=== PATIENT | female | born 1940 | race Caucasian/White ===

== ENCOUNTER 2020-03-17 14:10 | Outpatient (CLI) | payer MEDICARE, SELFPAY ==
--- NOTE | 2020-03-17 14:17 | XR_ITS ---
WS: [id number] HIP WITH PELVIS LEFT TECHNIQUE: 3 views of the left hip with pelvis CLINICAL INFORMATION: LEFT TOTAL HIP ARTHROPLASTY COMPARISON: None. FINDINGS: Left CHERYL. No evidence of hardware loosening. No acute fractures. Pelvic phleboliths. XR/XR hip LT 2-3V wo/w pel* [id number] IMPRESSION: Normal left CHERYL
== END 2020-03-17 14:11 | disposition home or self-care (01) ==
LOC: RAD 14:15
PROVIDERS: Family Provider Family Medicine; PCP Family Medicine; Visit Provider Orthopaedic Surgery
DX: Z96.642 Presence of left artificial hip joint (principal)
CPT/HCPCS: 73502

== ENCOUNTER 2022-09-28 09:28 | Outpatient (CLI) | payer MEDICARE, SELFPAY ==
--- NOTE | 2022-09-28 09:30 | USCV_ITS ---
Shona Cuenca Age: 82 Gender: F : 1940 Exam Date: 09/28/2022 09:45 Ordering Phys: Moose Colon MD Technologist: Angela Petty Exam Location: [facility] Indication: Heart murmur BP: 128 / 80 HR: 64 Rhythm: Sinus Technical Quality: Adequate MEASUREMENTS (Male / Female) Normal Values 2D ECHO LV Diastolic Diameter PLAX 3.2 cm 4.2 - 5.9 / 3.9 - 5.3 cm LV Systolic Diameter PLAX 1.5 cm IVS Diastolic Thickness 1.8 cm 0.6 - 1.0 / 0.6 - 0.9 cm IVS Systolic Thickness 1.9 cm LVPW Diastolic Thickness 1.5 cm 0.6 - 1.0 / 0.6 - 0.9 cm LVPW Systolic Thickness 1.6 cm LVOT Diameter 2.1 cm LV Ejection Fraction 2D Teich 84.4 % LV Ejection Fraction MOD 2C 83.8 % LV Ejection Fraction 2C AL 83.9 % LA Diameter 4.8 cm LA Width 3.5 cm LA Height 5.9 cm RA Width 4.1 cm RA Height 4.2 cm Aorta at Sinotubular Diameter 2.7 cm IVC Diameter 1.8 cm M-MODE MV E Point Septal Separation 0.8 cm DOPPLER AV Peak Velocity 209.0 cm/s LVOT Peak Velocity 108.0 cm/s AV Area Cont Eq vti 1.7 cm squared AV Area Cont Eq pk 1.7 cm squared MV Peak Velocity 136.0 cm/s MV Area PHT 2.9 cm squared Mitral E to A Ratio 0.6 MV E' Velocity 47.5 cm/s Mitral E to MV E' Ratio 15.9 Mitral E to LV E' Lateral Ratio 15.9 Mitral E to LV E' Septal Ratio 15.9 TR Peak Velocity 178.0 cm/s TR Peak Gradient 12.7 mmHg Right Atrial Pressure 3.0 mmHg Pulmonary Artery Systolic Pressu 15.7 mmHg PV Peak Velocity 97.0 cm/s RV Acceleration Time 0.1 s RV Ejection Time 0.3 s RV AcT/ET 0.4 FINDINGS Left Ventricle Normal left ventricular size, systolic function and wall thickness, with no regional wall motion abnormalities. Left ventricular ejection fraction is estimated at 70 %. Grade I diastolic dysfunction (abnormal relaxation filling pattern), normal to mildly elevated filling pressures. Right Ventricle Normal right ventricular size and systolic function. Right Atrium Normal right atrial size. Left Atrium Mildly increased left atrial size. Mitral Valve Moderate mitral annular calcification. Structurally normal mitral valve. No mitral valve stenosis. Trace mitral valve regurgitation. Aortic Valve Thickened sclerotic trileaflet aortic valve. No aortic valve stenosis. Mild aortic valve regurgitation. Tricuspid Valve Structurally normal tricuspid valve. No tricuspid valve stenosis. Trace to mild tricuspid valve regurgitation. Pulmonic Valve Pulmonic valve not well visualized. No pulmonary valve stenosis. Pericardium No pericardial effusion. Aorta Normal size aortic root and proximal ascending aorta. IVC Normal IVC dimension with >50% respiratory change of the inferior vena cava. CONCLUSIONS 1. Normal left ventricular size, systolic function and wall thickness, with no regional wall motion abnormalities. Left ventricular ejection fraction is estimated at 70 %. Grade I diastolic dysfunction (abnormal relaxation filling pattern), normal to mildly elevated filling pressures. 2. Mild aortic valve regurgitation. 3. No prior similar studies to compare. Joana Toure MD (Electronically Signed) Final Date: 29 September 2022 18:13 S
== END 2022-09-28 09:29 | disposition home or self-care (01) ==
LOC: RAD 09:29
PROVIDERS: PCP Family Medicine; Visit Provider Family Medicine
DX: R01.1 Cardiac murmur, unspecified (principal); I35.1 Nonrheumatic aortic (valve) insufficiency; I51.89 Other ill-defined heart diseases
CPT/HCPCS: 93306

== ENCOUNTER 2024-04-08 12:58 | Emergency (ER) | payer MEDICARE, SELFPAY ==
[2024-04-08 13:02] VITALS: BP 207/118; PULSE 86; RESP 18; TEMP 36.7; O2SAT 97
--- NOTE | 2024-04-08 13:16 | CT_ITS ---
WS: [id number] CT HEAD TECHNIQUE: Noncontrast CT of the head obtained from the skullbase to the vertex. CLINICAL INFORMATION: AMS COMPARISON: None. DLP: 2148.[address] scans at [facility] use at least one of these dose optimization techniques: automated e xposure control; mA and/or kV adjustment per patient size (includes targeted exams where dose is matc hed to clinical indication); or iterative reconstruction. FINDINGS: No evidence of intracranial hemorrhage or mass effect. Ventricular system and basal cisterns are parkinson nt. Mild small vessel changes with mild parenchymal volume loss. No extra-axial fluid collections. No evidence of mass or mass effect. Intracranial vascular calcification. Paranasal sinuses and mastoid air cells are well aerated. .Normal visualized soft tissues. Small rete ntion cyst or polyp RIGHT maxillary sinus partially visualized measuring 1.[address]/CT head wo con* [id number] IMPRESSION: 1. No evidence of intracranial hemorrhage or mass effect. 2. No acute intracranial findings.
--- NOTE | 2024-04-08 13:22 | ED_ITS ---
HPI - Dizziness 2 General: Chief Complaint: Dizziness Stated Complaint: dizzy Time Seen by Provider: 04/08/24 13:11 Source: patient Mode of arrival: ambulatory History of Present Illness: HPI Narrative: 83-year-old female presents to the emerg ency room stating just does not feel well. She felt better yesterday. She has increased tremor which has been a chronic issue for her and not yet really been evaluated for. She has hypertensive she had not been taking her blood pressure medicines last couple of days. Family reports she seems to have been a little confused the last few days patient acknowledges this but is able to give very detailed history she is aware she had not taken her medications. She had filled his losartan hydrochlorothiazide and forgot she had picked it up and was going back to town to pick it up she admits that his family had also noted this and was quite concerned. She denies any chest pain denies any abdominal pain. No flank pain no hematuria. No fever sweats or chills. No difficulty speech swallowing vision or gait. She does feel mildly dizzy at times MD elicited complaint: dizziness Onset (ago): day(s) (1) Severity: mild Description: sense of movement Context: change in medication (Has not had antihypertensive x 3 days) Associated symptoms: Reports weakness; Denies change in hearing, chest pain, chills, cough, diaphoresis, ear discharge, ear pressure, fevers/chills, headache(s), malaise, nausea, nasal congestion, palpitations, rash, short of breath, syncope, tinnitus or vomiting Associated neuro symptoms: Reports confusion (At times, A&O x 4 at the time she was seen); Deny difficulty speaking, dysphagia, diplopia, extremity weakness, facial numbness, facial weakness, gait changes, numbness in extremities or visual changes Review of Systems 2 Const: Denies: fever(s), chills, malaise or diaphoresis ENMT: Denies: ear discharge, change in hearing, tinnitus or nasal congestion Card: Denies: chest pain, palpitations or syncope Resp: Denies: dyspnea GI: Denies: abdominal pain, nausea, vomiting or dysphagia : Denies: dysuria, urinary frequency or urinary urgency Musc: Denies: neck pain or back pain Skin/Breast: Denies: rash Neuro: Reports: confusion (At times, A&O x 4 at the time she was seen); Denies: headache(s) or numbness in extremities Physical Exam 2 Const: COMMON NORMALS: no acute distress GENERAL APPEARANCE: cooperative and comfortable ORIENTATION/CONSCIOUSNESS: Yes awake, Yes oriented to person, Yes oriented to place and Yes oriented to time HENMT: COMMON NORMALS: normocephalic, atraumatic and hearing grossly normal bilaterally HEAD & SCALP: normocephalic and atraumatic Resp: COMMON NORMALS: normal respiratory effort, No retractions, No use of accessory muscles and clear to auscultation bilaterally AUSCULTATION: clear to auscultation bilaterally Cardio: COMMON NORMALS: regular rate, regular rhythm and No murmurs present (Cardio) RATE: regular rate RHYTHM: regular rhythm GI: COMMON NORMALS: Soft to palpation and No hepatosplenomegaly present A USCULTATION: Yes normoactive bowel sounds PALPATION: Yes Soft to palpation, No Tenderness to palpation present (GI), No Guarding due to palpation present (GI) and Yes No hepatosplenomegaly present Extremity: COMMON NORMALS: normal to inspection, capillary refill normal, no clubbing, cyanosis or edema, no calf tenderness and no pedal edema Neuro: SENSORIUM/ORIENTATION: Yes oriented to person, Yes oriented to place and Yes oriented to time Skin: COMMON NORMALS: no rashes or lesions noted GENERAL SKIN EXAM: no rashes or lesions noted Course 2 Vital Signs: Vital signs: Vital Signs Temperature 98.1 F 04/08/24 13:02 Pulse Rate 77 04/08/24 17:32 Respiratory Rate 18 04/08/24 13:02 Blood Pressure 137/78 04/08/24 17:32 Pulse Oximetry 98 04/08/24 17:32 Oxygen Delivery Me thod Room Air 04/08/24 13:02 MDM - Dizziness Medical Decision Making Patient's blood pressure improved with medications given discharged home add amlodipine 5 mg daily also noted patient had a mild bladder infection no leukocytosis. Will start on cefdinir 300 p.o. twice daily. Push fluids follow- up with primary care to reevaluate blood pressure if symptoms otherwise worsen return to the emergency room Medical Records I reviewed the patient's medical records. Lab Data I reviewed the patient's lab results. 04/08/24 13:42 04/08/24 13:[address] 04/08/24 13:16 IMPRESSION: 1. No evidence of intracranial hemorrhage or mass effect. 2. No acute intracranial findings. Laboratory Results WBC 5.53 10^3/uL (3.29-11.43) 04/08/24 13:42 RBC 4.34 10^6/uL (3.85-5.65) 04/08/24 13:42 Hgb 12.90 g/dL (11.27-16.99) 04/08/24 13:42 Hct 39.4 % (36-47) 04/08/24 13:42 MCV 90.8 fl (85-98) 04/08/24 13:42 MCH 29.7 pg (27-33) 04/08/24 13:42 MCHC 32.7 g/dL (30-55) 04/08/24 13:42 RDW 14.5 % (12.1-15.1) 04/08/24 13:42 Plt Count 213 10^3/cmm (157-399) 04/08/24 13:42 MPV 11.2 fL (7.4-10.4) H 04/08/24 13:42 Neut % (Auto) 72.8 % 04/08/24 13:42 Lymph % (Auto) 15.2 % 04/08/24 13:42 [place] % (Auto) 9.2 % 04/08/24 13:42 Eos % (Auto) 1.3 % 04/08/24 13:42 Baso % (Auto) 1.1 % 04/08/24 13:42 Neut # (Auto) 4.03 10^3/uL (1.8-7.7) 04/08/24 13:42 Lymph # (Auto) 0.8 10^3/uL (0.8-4.8) 04/08/24 13:42 Irwin # (Auto) 0.5 10^3/uL (0.2-0.9) 04/08/24 13:42 Eos # (Auto) 0.1 10^3/uL (0.0-0.8) 04/08/24 13:42 Baso # (Auto) 0.1 10^3/uL (0.0-0.1) 04/08/24 13:42 Nucleated RBC % (auto) 0 % 04/08/24 13:42 Nucleated RBCs # 0.0 /100WBC 04/08/24 13:42 Sodium 140 mmol/L (136-145) 04/08/24 13:42 Potassium 3.9 mmol/L (3.5-5.1) 04/08/24 13:42 Chloride 106 mmol/L (98-107) 04/08/24 13:42 Carbon Dioxide 24 mmol/L (22-29) 04/08/24 13:42 Anion Gap 13.9 (5-19) 04/08/24 13:42 BUN 24 mg/dL (8-23) H 04/08/24 13:42 Creatinine 0.9 mg/dL (0.5-0.9) 04/08/24 13:42 GFR Calculation Not Reportable 04/08/24 13:42 Glucose 96 mg/dL (65-115) 04/08/24 13:42 Calculated Osmolality 294 mOsm/kg (285-295) 04/08/24 13:42 Lactic Acid 0.8 mmol/L (0.5-2.2) 04/08/24 13:42 Calcium 9.4 mg/dL (8.5-10.5) 04/08/24 13:42 Total Bilirubin 0.3 mg/dL (0.15-1.2) 04/08/24 13:42 AST 19 U/L (0-32) 04/08/24 13:42 ALT 10 U/L (0-33) 04/08/24 13:42 Alkaline Phosphatase 64 U/L (35-105) 04/08/24 13:42 Total Protein 7.3 g/dL (6.6-8.7) 04/08/24 13:42 Albumin 3.9 g/dL (3.5-5.2) 04/08/24 13:42 Globulin 3.4 g/dL (1.3-4.6) 04/08/24 13:42 Urine Color Yellow (Yellow) 04/08/24 14:09 Urine Appearance Sl hazy (CLEAR) A 04/08/24 14:09 Urine pH 6 (5-7) 04/08/24 14:[address] [place] 1.005 (1.005-1.030) 04/08/24 14:09 Urine Protein Trace (Negative) 04/08/24 14:09 Urine Glucose (UA) Norm (Normal) 04/08/24 14:09 Urine Ketones Negative (Negative) 04/08/24 14:09 Urine Blood Neg (Negative) 04/08/24 14:09 Urine Nitrate Positive (Negative) H 04/08/24 14:09 Urine Bilirubin Neg (Negative) 04/08/24 14:09 Urine Urobilinogen Norm mg/dL (Negative) 04/08/24 14:09 Ur Leukocyte Esterase Trace (Negative) H 04/08/24 14:09 Urine RBC 0-4 /hpf (0-2) H 04/08/24 14:09 Urine WBC 10-15 /hpf (0-5) H 04/08/24 14:09 Ur Squamous Epith Cells None /hpf (0-5) 04/08/24 14:09 Amorphous Sediment Not Reportable 04/08/24 14:09 Urine Bacteria 3+ /hpf (NONE) H 04/08/24 14:09 All radiology interpretation(s) finalized by discharge Discharge Plan Discharge Patient Disposition: Home Clinical Impression: Cystitis, HTN (hypertension) Condition: Stable Prescriptions: New amlodipine 5 mg tablet 5 mg PO DAILY Qty: 30 0RF cefdinir 300 mg capsule 300 mg PO BID Qty: 14 0RF losartan-hydrochlorothiazide 50-12.5 mg tablet 1 tab PO DAILY Qty: 30 0RF No Action atorvastatin 10 mg tablet 10 mg PO BEDTIME oxybutynin chloride 10 mg tablet extended release 24hr 10 mg PO DAILY losartan-hydrochlorothiazide 50-12.5 mg tablet 1 tab PO DAILY Discharge Orders: Discharge ED (Routine); Ordered 04/08/24 Ordered By: Erik Hawkins Referrals: Moose Colon MD [Primary Care Provider] - Discharge Diet: Usual diet Discharge Activity: Resume usual activity Patient Instructions: Opioid Safety, Pain Management Activity Restrictions/Additional Instructions: Thank you for choosing [facility] for your healthcare needs today. Please realize this is an emergency room and that we are providing you with a medical screening exam and this may not be complete and all inclusive of all the testing and or work up that you may need to determine your ailment or severity of your illness. It is very important that you follow up as instructed or that you return to the Emergency Department should you have concerns or if your condition changes or worsens in any way. You were seen today for complaints of elevated blood pressure and generally not feeling well. Your blood pressure is significantly elevated recommend that you continue your losartan hydrochlorothiazide and add amlodipine 5 mg daily. In addition to this you are found to have a bladder infection recommend starting cefdinir 300 mg 1 twice daily for 7 days. Follow-up with your primary care doctor. Coding Level of Care Code ED Intermediate Teacher for Liban Arango
[2024-04-08 13:41] VITALS: PULSE 71; O2SAT 96
[2024-04-08 13:57] LABS: Basophils # 0.1 10^3/uL (0.0-0.1); Basophils % 1.1 %; Eosinophils # 0.1 10^3/uL (0.0-0.8); Eosinophils % 1.3 %; Hematocrit 39.4 % (36-47); Lymphocytes # 0.8 10^3/uL (0.8-4.8); Lymphocytes % 15.2 %; Mean Corpuscular HGB Conc 32.7 g/dL (30-55); Mean Corpuscular Hemoglobin 29.7 pg (27-33); Mean Corpuscular Volume 90.8 fl (85-98); Mean Platelet Volume 11.2 fL (7.4-10.4); Monocytes # 0.5 10^3/uL (0.2-0.9); Monocytes % 9.2 %; Neutrophils # 4.03 10^3/uL (1.8-7.7); Neutrophils % 72.8 %; Nucleated Red Blood Cells % 0 %; Platelet Count 213 10^3/cmm (157-399); Red Blood Count 4.34 10^6/uL (3.85-5.65); Red Cell Distribution Width 14.5 % (12.1-15.1); White Blood Count 5.53 10^3/uL (3.29-11.43)
[2024-04-08] MEDS: hydroCHLOROthiazide 25 mg Tablet PO (14:03)
[2024-04-08 14:07] LABS: Lactic Sepsis W/Reflex 0.8 mmol/L (0.5-2.2)
[2024-04-08 14:08] LABS: Alanine Aminotransferase 10 U/L (0-33); Albumin Level 3.9 g/dL (3.5-5.2); Alkaline Phosphatase 64 U/L (35-105); Anion Gap 13.9 (5-19); Aspartate Amino Transferase 19 U/L (0-32); Blood Urea Nitrogen 24 mg/dL (8-23); Calcium 9.4 mg/dL (8.5-10.5); Carbon Dioxide 24 mmol/L (22-29); Chloride 106 mmol/L (98-107); Globulin 3.4 g/dL (1.3-4.6); Glucose 96 mg/dL (65-115); Osmolality Calculated 294 mOsm/kg (285-295); Potassium 3.9 mmol/L (3.5-5.1); Sodium 140 mmol/L (136-145); Total Bilirubin 0.3 mg/dL (0.15-1.2); Total Protein 7.3 g/dL (6.6-8.7)
[2024-04-08 14:47] LABS: Add Urine Microscopic? YES; Bilirubin Urine Neg (Negative); Blood Urine Neg (Negative); Glucose Urine UA Norm (Normal); Ketones Urine Negative (Negative); Leukocyte Esterase Urine Trace (Negative); Nitrate Urine Positive (Negative); Protein Urine Trace (Negative); Specific Gravity, Urine 1.005 (1.005-1.030); Urine Appearance SL Hazy (CLEAR); Urine Color Yellow (Yellow); Urobilinogen Urine Norm (Negative); pH Urine 6 (5-7)
[2024-04-08 14:48] LABS: Add Urine Culture? Yes; Bacteria Urine 3+ /hpf; RBC Urine 0-4 /hpf (0-2)
[2024-04-08] MEDS: hyDRALAzine 20 mg/mL INJ 1 mL 10 MG IVP ×2 (15:29→16:26)
[2024-04-08 15:33] VITALS: BP 204/105
[2024-04-08] MEDS: losartan 50 mg Tablet PO (15:33)
[2024-04-08] MEDS: cefTRIAXone 1,000 MG in sodium chloride 0.9% (plus) 50 ML 100 MG IV (15:35)
[2024-04-08 15:41] VITALS: BP 204/105; BP 210/118; BP 216/129; BP 238/139; PULSE 71; PULSE 79; PULSE 86; PULSE 88; O2SAT 99
[2024-04-08] MEDS: labetalol 5 mg/mL SDV 20mL 10 MG IVP (16:28)
[2024-04-08 16:37] VITALS: BP 137/78; PULSE 77; O2SAT 98
[2024-04-08 17:32] VITALS: BP 137/78; PULSE 77; O2SAT 98
== END 2024-04-08 17:35 | disposition home or self-care (01) ==
PROVIDERS: Emergency Provider Family Medicine; PCP Family Medicine
DX: N30.90 Cystitis, unspecified without hematuria (principal); I10 Essential (primary) hypertension
CPT/HCPCS: 36415; 70450; 80053; 81001; 83605; 85025; 87077; 87086; 87186; 96365; 96375; 96376; 99285; J0360; J0696; J3490

== ENCOUNTER 2024-06-01 12:15 | Outpatient (CLI) | payer MEDICARE, SELFPAY ==
--- NOTE | 2024-06-01 12:23 | MR_ITS ---
WS: [id number] MRI LUMBAR SPINE NONCONTRAST TECHNIQUE: Sagittal T1, T2 and STIR imaging. Axial T1 and T2 imaging. CLINICAL INFORMATION: DEGENERATIVE LUMBAR SPINAL STENOSIS COMPARISON: MRI 2017 FINDINGS: Mild lumbar curve. No acute compression. Moderate spondylitic changes. L1-L2: Mild disc bulge with mild central canal stenosis. Narrowing of the subarticular recess bilater ally. Moderate facet arthropathy. Mild bilateral foraminal narrowing. L2-L3: Central canal stenosis has improved with laminectomy defects. Narrowing of the subarticular re cess. Foramen are patent. L3-L4: Improved central canal stenosis with laminectomy defects. Mild residual central canal narrowin g. Moderate facet arthropathy. Mild bilateral foraminal narrowing. L4-L5: Spinal canal is patent. Laminectomy defects. Moderate facet arthropathy. Mild bilateral forami nal narrowing. L5-S1: Shallow central protrusion with impingement of traversing S1 nerve roots bilaterally and mild central canal stenosis. This is similar to previous. Moderate to severe LEFT greater than RIGHT nancy inal narrowing. Visualized pelvic bony structures: Normal. Paravertebral soft tissues: Normal. MR/MR lumbar spine wo con* [id number] IMPRESSION: 1. Mild lumbar curve. Moderate spondylitic changes. No acute compression fract ures. 2. Improved central canal stenosis L2-3, L3-4, and L4-5 with laminectomy defec ts. Mild residual central canal stenosis at these levels with narrowing of the subarticular recess. 3. Mild similar-appearing central canal stenosis L1-2 and L5-S1. 4. Moderate to severe bilateral L5-S1 foraminal narrowing worse on the LEFT wi th impingement on the exiting LEFT L5 nerve root. 5. Shallow central protrusion L5-S1 impinges the traversing S1 nerve roots conor aterally.
== END 2024-06-01 12:18 | disposition home or self-care (01) ==
PROVIDERS: PCP Family Medicine; Visit Provider Family Medicine
DX: M48.061 Spinal stenosis, lumbar region without neurogenic claudication (principal); M47.896 Other spondylosis, lumbar region; M96.1 Postlaminectomy syndrome, not elsewhere classified; M99.63 Osseous and subluxation stenosis of intervertebral foramina of lumbar region; M99.64 Osseous and subluxation stenosis of intervertebral foramina of sacral region
CPT/HCPCS: 72148

== ENCOUNTER 2024-12-30 10:14 | Emergency (ER) | payer MEDICARE, SELFPAY ==
--- NOTE | 2024-12-30 10:15 | XR_ITS ---
WS: [id number] Portable AP upright chest, 12/30/2024 Clinical Data: weakness Comparison: None. Findings: No nodules, masses or effusions are seen. The heart is normal. The pulmonary vascularity is not increased. No pneumonia or pneumothorax is seen. The aortic arch shows calcification and there is tortuosity of the descending thoracic aorta. There is osteoarthritis of both shoulders. XR/XR chest 1V portable [id number] Impression: Atherosclerosis.
--- NOTE | 2024-12-30 10:17 | ECG_ITS ---
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 [email or web address]
[2024-12-30 10:23] VITALS: BP 120/77; PULSE 76; TEMP 36.4; O2SAT 100; BMI 29.1
[2024-12-30 11:21] LABS: Basophils # 0.1 10^3/uL (0.0-0.1); Basophils % 1.8 %; Eosinophils # 0.3 10^3/uL (0.0-0.8); Eosinophils % 5.1 %; Hematocrit 39.7 % (36-47); Lymphocytes # 0.9 10^3/uL (0.8-4.8); Lymphocytes % 17.7 %; Mean Corpuscular HGB Conc 33.2 g/dL (30-55); Mean Corpuscular Hemoglobin 29.9 pg (27-33); Mean Corpuscular Volume 89.8 fl (85-98); Mean Platelet Volume 10.9 fL (7.4-10.4); Monocytes # 0.5 10^3/uL (0.2-0.9); Monocytes % 10.4 %; Neutrophils # 3.18 10^3/uL (1.8-7.7); Neutrophils % 64.8 %; Nucleated Red Blood Cells % 0 %; Platelet Count 226 10^3/cmm (157-399); Red Blood Count 4.42 10^6/uL (3.85-5.65); Red Cell Distribution Width 15.3 % (12.1-15.1); White Blood Count 4.91 10^3/uL (3.29-11.43)
[2024-12-30 11:37] LABS: Alanine Aminotransferase 9 U/L (0-33); Albumin Level 4.1 g/dL (3.5-5.2); Alkaline Phosphatase 62 U/L (35-105); Anion Gap 16.1 (5-19); Aspartate Amino Transferase 20 U/L (0-32); Blood Urea Nitrogen 28 mg/dL (8-23); Calcium 9.4 mg/dL (8.5-10.5); Carbon Dioxide 24 mmol/L (22-29); Chloride 101 mmol/L (98-107); Creatinine Clr Calc Pharmacy 38.9298; Globulin 3.2 g/dL (1.3-4.6); Glucose 94 mg/dL (65-115); Lipase 64 U/L (13-60); Osmolality Calculated 289 mOsm/kg (285-295); Potassium 4.1 mmol/L (3.5-5.1); Sodium 137 mmol/L (136-145); Total Bilirubin 0.2 mg/dL (0.15-1.2); Total Protein 7.3 g/dL (6.6-8.7)
--- NOTE | 2024-12-30 11:45 | PC.NURSE ---
Patient stated woke up this morning not feeling good and not sure what is going. States this morning was walking sideways and felt weak and shaky. Family states she was SOB yesterday and this morning. Saw primary for weakness and SOB. Had UTI diagnosis on Saturday and on cipro now. Family states she is confused and has gotten worse with the confusion everyday. Family says the patient stated this morning that the top of her head had a funny sensation. No cough per patient.
--- NOTE | 2024-12-30 12:01 | ED_ITS ---
HPI - Weakness 2 General: Chief complaint: Weakness Stated complaint: weakness Time Seen by Provider: 12/30/24 11:49 History of Present Illness: 84-year-old woman with history of hypert ension who presents to the emergency room with generalized weakness. This been going on for about a week. She had been treated for urinary tract infection. She has been having tremors and increased confusion. She is alert and oriented now. No increased work of breathing. She has no other complaints. No fevers. No cough. No abdominal pain. No dysuria. No vomiting. Review of Systems 2 Narrative: Constitutional symptoms: Negative except as documented in HPI. Skin symptoms: Negative except as documented in HPI. Eye symptoms: Negative except as documented in HPI. ENMT symptoms: Negative except as documented in HPI. Respiratory symptoms: Negative except as documented in HPI. Cardiovascular symptoms: Negative except as documented in HPI. Gastrointestinal symptoms: Negative except as documented in HPI. Genitourinary symptoms: Negative except as documented in HPI. Musculoskeletal symptoms: Negative except as documented in HPI. Neurologic symptoms: Negative except as documented in HPI. Psychiatric symptoms: Negative except as documented in HPI. Endocrine symptoms: Negative except as documented in HPI. Physical Exam 2 Narrative: EXAM NARRATIVE: General: Alert, no acute distress. Skin: Warm, dry. Head: Normocephalic, atraumatic. Neck: Supple, trachea midline. Eye: Extraocular movements are intact. Ears, nose, mouth and throat: Tacky oral mucosa Cardiovascular: Regular, Normal peripheral perfusion. Respiratory: Lungs are clear to auscultation, respirations are non-labored, breath sounds are equal, Symmetrical chest wall expansion. Gastrointestinal: Soft, Nontender, Non distended Musculoskeletal: Normal ROM, no deformity. Neurological: Alert and oriented, No focal neurological deficit observed. Psychiatric: Cooperative, appropriate mood & affect. Course 2 Vital Signs: Vital signs: Vital Signs Temperature 97.5 F L 12/30/24 10:23 Pulse Rate 67 12/30/24 12:36 Respiratory Rate 19 H 12/30/24 12:36 Blood Pressure 133/75 12/30/24 12:36 Pulse Oximetry 99 12/30/24 12:36 Oxygen Delivery Me thod Room Air 12/30/24 10:23 MDM - Weakness Medical Decision Making Medical decision making: Differential diagnosis for patient presenting with generalized weakness including but not limited to and based on the above HPI, review of systems and physical exam: Sepsis. Dehydration. Renal failure. Electrolyte abnormalities. Anemia. Congestive heart failure. Hypotension. Coronary syndrome. Hepatitis. Cirrhosis. Infections such as pneumonia, urinary tract infection, [place] illness, Cellulitis, Viral infections including influenza and Covid-19. Workup: labwork and lab/exam driven imaging ordered to evaluate, rule in and rule out above pathologies. EKG: Time 1027. Rate 66. Normal sinus rhythm, nonspecific ST-T changes, no ectopy, normal SC & QRS intervals, This was reviewed and interpreted by myself the ER physician at 1031 Lab Review: Laboratory results were reviewed and interpreted by myself the emergency room physician. No leukocytosis. No anemia. Mild elevation in her BUN and creatinine over baseline. Urinalysis is negative for infection. Breast some acute mild dehydration could result in her weakness and shakiness. Fluids are being given. CT head: No acute intracranial process. no intracranial hemorrhage, no evidence of infarct. no evidence of acute fracture.This was reviewed and interpreted by myself the ER physician. Chest x-ray: No acute process. No infiltrate. No pneumothorax. This was reviewed and interpreted by myself the emergency room physician. I also reviewed the radiology report. I reviewed the patient's medical record. Reexamination: Patient remained stable. No increased work of breathing. No altered mental status. No focal motor deficits. Assessment and plan: Dehydration Weakness - Discharged home - Discussed plan with patient and family. Answered any questions. - Evaluation and treatment of this problem were appropriate in the emergency setting. Lab Data 12/30/24 11:07 12/30/24 11:07 Radiology Impressions Chest X-Ray 12/30/24 10:15 Impression: Atherosclerosis. Head CT 12/30/24 13:10 IMPRESSION: 1. No acute intracranial hemorrhage or edema. 2. Mild atrophy and mild small vessel disease. 3. Moderate plaque in the intracranial carotid arteries. Laboratory Results WBC 4.91 10^3/uL (3.29-11.43) 12/30/24 11:07 RBC 4.42 10^6/uL (3.85-5.65) 12/30/24 11:07 Hgb 13.20 g/dL (11.27-16.99) 12/30/24 11:07 Hct 39.7 % (36-47) 12/30/24 11:07 MCV 89.8 fl (85-98) 12/30/24 11:07 MCH 29.9 pg (27-33) 12/30/24 11:07 MCHC 33.2 g/dL (30-55) 12/30/24 11:07 RDW 15.3 % (12.1-15.1) H 12/30/24 11:07 Plt Count 226 10^3/cmm (157-399) 12/30/24 11:07 MPV 10.9 fL (7.4-10.4) H 12/30/24 11:07 Neut % (Auto) 64.8 % 12/30/24 11:07 Lymph % (Auto) 17.7 % 12/30/24 11:07 Darke % (Auto) 10.4 % 12/30/24 11:07 Eos % (Auto) 5.1 % 12/30/24 11:07 Baso % (Auto) 1.8 % 12/30/24 11:07 Neut # (Auto) 3.18 10^3/uL (1.8-7.7) 12/30/24 11:07 Lymph # (Auto) 0.9 10^3/uL (0.8-4.8) 12/30/24 11:07 Darke # (Auto) 0.5 10^3/uL (0.2-0.9) 12/30/24 11:07 Eos # (Auto) 0.3 10^3/uL (0.0-0.8) 12/30/24 11:07 Baso # (Auto) 0.1 10^3/uL (0.0-0.1) 12/30/24 11:07 Nucleated RBC % (auto) 0 % 12/30/24 11:07 Nucleated RBCs # 0.0 /100WBC 12/30/24 11:07 Sodium 137 mmol/L (136-145) 12/30/24 11:07 Potassium 4.1 mmol/L (3.5-5.1) 12/30/24 11:07 Chloride 101 mmol/L (98-107) 12/30/24 11:07 Carbon Dioxide 24 mmol/L (22-29) 12/30/24 11:07 Anion Gap 16.1 (5-19) 12/30/24 11:07 BUN 28 mg/dL (8-23) H 12/30/24 11:07 Creatinine 1.1 mg/dL (0.5-0.9) H 12/30/24 11:07 GFR Calculation Not Reportable 12/30/24 11:07 Glucose 94 mg/dL (65-115) 12/30/24 11:07 Calculated Osmolality 289 mOsm/kg (285-295) 12/30/24 11:07 Lactic Acid 1.2 mmol/L (0.5-2.2) 12/30/24 11:07 Calcium 9.4 mg/dL (8.5-10.5) 12/30/24 11:07 Total Bilirubin 0.2 mg/dL (0.15-1.2) 12/30/24 11:07 AST 20 U/L (0-32) 12/30/24 11:07 ALT 9 U/L (0-33) 12/30/24 11:07 Alkaline Phosphatase 62 U/L (35-105) 12/30/24 11:07 Total Protein 7.3 g/dL (6.6-8.7) 12/30/24 11:07 Albumin 4.1 g/dL (3.5-5.2) 12/30/24 11:07 Globulin 3.2 g/dL (1.3-4.6) 12/30/24 11:07 Lipase 64 U/L (13-60) H 12/30/24 11:07 Urine Color Yellow (Yellow) 12/30/24 12:20 Urine Appearance Clear (CLEAR) 12/30/24 12:20 Urine pH 6.0 (5-7) 12/30/24 12:20 Ur Specific [place] 1.015 (1.005-1.030) 12/30/24 12:20 Urine Protein Negative (Negative) 12/30/24 12:20 Urine Glucose (UA) Negative (Normal) 12/30/24 12:20 Urine Ketones Negative (Negative) 12/30/24 12:20 Urine Blood Negative (Negative) 12/30/24 12:20 Urine Nitrate Negative (Negative) 12/30/24 12:20 Urine Bilirubin Negative (Negative) 12/30/24 12:20 Urine Urobilinogen 0.2 mg/dL (Negative) 12/30/24 12:20 Ur Leukocyte Esterase Negative (Negative) 12/30/24 12:20 Urine RBC 0-2 /hpf (0-2) 12/30/24 12:20 Urine WBC 0-5 /hpf (0-5) 12/30/24 12:20 Ur Squamous Epith Cells 0-5 /hpf (0-5) 12/30/24 12:20 Amorphous Sediment Not Reportable 12/30/24 12:20 Urine Bacteria None seen /hpf (NONE) 12/30/24 12:20 Hyaline Casts 0-4 /lpf H 12/30/24 12:20 Coronavirus (PCR) Negative (Negative) 12/30/24 11:55 Influenza A (PCR) Negative (Negative) 12/30/24 11:55 Influenza Type B (PCR) Negative (Negative) 12/30/24 11:55 RSV (PCR) Negative (Negative) 12/30/24 11:55 All radiology interpretation(s) finalized by discharge Discharge Plan Discharge Patient Disposition: Home Clinical Impression: Dehydration, Generalized weakness Condition: Stable Prescriptions: No Action atorvastatin 10 mg tablet 10 mg PO BEDTIME oxybutynin chloride 10 mg tablet extended release 24hr 10 mg PO DAILY losartan-hydrochlorothiazide 50-12.5 mg tablet 1 tab PO DAILY ciprofloxacin HCl 250 mg tablet 250 mg PO Q12H Discharge Orders: Discharge ED (Routine); Ordered 12/30/24 Ordered By: Bette Villar Referrals: Moose Colon MD [Primary Care Provider] - Discharge Diet: Usual diet Discharge Activity: Increase activity as tolerated Patient Instructions: Opioid Safety, Pain Management Activity Restrictions/Additional Instructions: Thank you for choosing [facility] for your healthcare needs today. Please realize this is an emergency room and that we are providing you with a medical screening exam and this may not be complete and all inclusive of all the testing and or work up that you may need to determine your ailment or severity of your illness. You have been screened and evaluated and felt safe for discharge. Health conditions do change or evolve sometimes and as such it is important that you follow up with your Primary Doctor to be re checked, 3-5 days is a general good time frame for follow up. You are always welcome to return to the ED for re assessment if your symptoms are worsening or you have new concerns Print Language: Andorran Coding Level of Care Code ED Director Of Institutional Sales for Chg Fwd Related Data Home Medications ?Medication ?Instructions ?Recorded ?Confirmed atorvastatin 10 mg tablet 10 mg PO BEDTIME 05/15/24 02 /05/25 losartan 50 mg-hydrochlorothiazide 1 tab PO DAILY 03/2512/30/24 12.5 mg tablet oxybutynin chloride 10 mg 10 mg PO DAILY 04/08/2404/18 tablet,extended release 24 hr ciprofloxacin HCl 250 mg tablet 250 mg PO Q12H 5 12/30/24 Allergies Allergy/AdvReac Type Severity Reaction Status Date / Time No Known Allergies Allergy Verified 12/30/24 10:35
[2024-12-30] MEDS: sodium chloride 0.9% 1,000 ML 999 ML IV (12:35)
[2024-12-30 12:36] VITALS: BP 133/75; PULSE 67; RESP 19; O2SAT 99
[2024-12-30 12:51] LABS: Bilirubin Urine Negative (Negative); Blood Urine Negative (Negative); Glucose Urine UA Negative (Normal); Ketones Urine Negative (Negative); Leukocyte Esterase Urine Negative (Negative); Nitrate Urine Negative (Negative); Protein Urine Negative (Negative); Specific Gravity, Urine 1.015 (1.005-1.030); Urine Appearance Clear (CLEAR); Urine Color Yellow (Yellow); Urobilinogen Urine 0.2 mg/dL (Negative)
[2024-12-30 12:56] LABS: Add Urine Microscopic? YES; Bacteria Urine None Seen /hpf; Hyaline Casts Urine 0-4 /lpf; RBC Urine 0-2 /hpf (0-2); Squamous Epithelial Cell Urine 0-5 /hpf (0-5); WBC Urine 0-5 /hpf (0-5)
--- NOTE | 2024-12-30 13:10 | CT_ITS ---
WS: [id number] CT HEAD NONCONTRAST HISTORY: Weakness TECHNIQUE: Contiguous axial imaging performed through the brain. Bone and soft tissue windows. Sagittal and coronal reformats reviewed. All CT scans at [facility] use at least one of these dose optimization techniques: automated exposure control; mA and/or kV adjustment per patient size (includes targeted exams where dose is matched to clinical indication); or iterative reconstruction. DLP: 1102.74 mGy.cm COMPARISON: 04/08/2024 No acute intracranial hemorrhage, midline shift or mass effect. Mild symmetric atrophy with diffuse mild small vessel disease. No prior infarct. Ventricles: Normal size with no hydrocephalus. Paranasal sinuses: As visualized are clear. Mastoid air cells: Well pneumatized. Calvarium and scalp: Skull is intact with no soft tissue edema or swelling. Scattered plaque in the distal vertebral arteries. Moderate plaque through the intracranial carotid arteries. CT/CT head wo con* [id number] IMPRESSION: 1. No acute intracranial hemorrhage or edema. 2. Mild atrophy and mild small vessel disease. 3. Moderate plaque in the intracranial carotid arteries.
[2024-12-30 13:13] LABS: Lactic Sepsis W/Reflex 1.2 mmol/L (0.5-2.2)
[2024-12-30 13:29] LABS: Covid PCR NEGATIVE (Negative); Influenza A NEGATIVE (Negative); Influenza B NEGATIVE (Negative); Respiratory Syncytial Virus Ce NEGATIVE (Negative)
[2024-12-30 14:23] VITALS: BP 141/73; PULSE 66; O2SAT 98
[2024-12-30 16:17] LABS: Adenovirus Not Detected (NOT DETECT); Chlamydia Pneumoniae Not Detected (NOT DETECT); Coronavirus 229E,HKU1,NL63,OC4 Not Detected (NOT DETECT); Human Metapneumovirus Not Detected (NOT DETECT); Human Rhinovirus/Enterovirus Not Detected (NOT DETECT); Influenza A Not Detected (NOT DETECT); Influenza A H1 Not Detected (NOT DETECT); Influenza A H1-2009 Not Detected (NOT DETECT); Influenza A H3 Not Detected (NOT DETECT); Influenza B Not Detected (NOT DETECT); Mycoplasma Pneumoniae Not Detected (NOT DETECT); Parainfluenza Virus Type 1 Not Detected (NOT DETECT); Parainfluenza Virus Type 2 Not Detected (NOT DETECT); Parainfluenza Virus Type 3 Not Detected (NOT DETECT); Parainfluenza Virus Type 4 Not Detected (NOT DETECT); Respiratory Syncytial Virus A Not Detected (NOT DETECT); Respiratory Syncytial Virus B Not Detected (NOT DETECT); SARS-COV-2 Not Detected (NOT DETECT)
== END 2024-12-30 14:24 | disposition home or self-care (01) ==
PROVIDERS: Emergency Medicine; Emergency Provider Emergency Medicine; PCP Family Medicine
DX: E86.0 Dehydration (principal); R53.1 Weakness; Z11.52 Encounter for screening for COVID-19
CPT/HCPCS: 36415; 70450; 71045; 80053; 81001; 83605; 83690; 85025; 87040; 87635; 87637; 93005; 96360; 96361; 99285; J7030

== ENCOUNTER 2025-01-08 08:47 | Emergency (ER) | payer MEDICARE, SELFPAY ==
[2025-01-08] VITALS (10 sets, daily range): BP systolic 142–185; BP diastolic 83–120; PULSE 73–88; RESP 17; TEMP 36.4; O2SAT 94–100; BMI 26.6
--- NOTE | 2025-01-08 08:56 | XR_ITS ---
WS: [id number] XR shoulder RT min 2V* [id number] REASON FOR EXAM: pain FINDINGS: No acute fracture or focal bone lesion. The acromioclavicular joint space is intact there is moderate marginal osteophytosis. Severe narrowing, with inferior [id number] articulation of the glenohumeral joint space severe subchondral sclerosis and cystic change in the subarticular humeral head and acetabulum. Significant deformity of the humeral head with large osteophytosis. Large loose body in the subcoracoid bursa. On the Y view there is a subtle discontinuity of cortex which could be indicative of an occult nondisplaced surgical neck fracture. Difficult to determine with the severe arthropathy.? Trauma XR/XR shoulder RT min 2V* [id number] IMPRESSION: Severe osteoarthritis of the right shoulder as above. Potential nondisplaced in complete surgical neck fracture, equivocal.
--- NOTE | 2025-01-08 09:07 | ECG_ITS ---
[facility] 2025[facility]08 Pat Name: Shona Cuenca Department: Room: Gender: Female Data Entry: : 1940 Requested By: Erik Neil Order Number: [id number] Reading MD: KING PENA Measurements Intervals [place] Rate: 74 P: 6 ND: 204 QRS: 55 QRSD: 96 T: 106 QT: 411 QTc: 456 Interpretive Statements SINUS RHYTHM WITH OCCASIONAL SUPRAVENTRICULAR PREMATURE COMPLEXES LEFT VENTRICULAR HYPERTROPHY AND ST-T CHANGE [VOLTAGE CRITERIA PLUS ST/T ABNORMALITY] POSSIBLE INFERIOR MYOCARDIAL INFARCTION , PROBABLY OLD [30 ms Q WAVE IN II/aVF] Compared to ECG 12/30/2024 10:27:53 Left ventricular hypertrophy now present ST (T wave) deviation now present Myocardial infarct finding still present Electronically Signed On 01-09-2025 19:28:11 RIG BUILDER by KING PENA [email or web address]
--- NOTE | 2025-01-08 09:09 | PC.PHAR ---
patients daughter states she stopped taking atorvastatin recently per doc orders, then oxybutynin was dc'd because of causing memory issues
--- NOTE | 2025-01-08 09:34 | ED_ITS ---
HPI - Fall 2 General: Chief Complaint: Fall Stated Complaint: R shoulder pain Time Seen by Provider: 01/08/25 08:55 History of Present Illness: 84 yo patient reports experiencing right shoulder pain, which has been persistent since a fall that occurred four to five years ago. Although the daughter interjects that the patient may have fallen this morning they found a stepstool there are some coverage with a put her medicines elevated to limit her ability to get at them she admitted she was trying to get her medicines. There is no obvious signs that the patient had a fall this morning. The patient has not had any recent falls that resulted in injury to the shoulder. The patient describes feeling unsteady and experiencing some confusion, which was notably severe about a week ago, leading to an ER visit where multiple tests were conducted but no significant issues were found. The patient has a history of high blood pressure, which was addressed with an increase in amlodipine dosage two weeks ago. The patient's blood pressure was noted to be low in the ER but has since stabilized. The patient denies recent chest pain, abdominal pain, or urinary symptoms. There is no recent history of fever, cough, or flu-like symptoms. The patient also reports occasional memory issues, which have been recent. The patient's daughter, Virginia, confirms these details and mentions that the patient looked shaky this morning Associated symptoms-after fall: Denies abdominal pain, chest pain or neck pain Related Data Home Medications ?Medication ?Instructions ?Recorded ?Confirmed losartan 50 mg-hydrochlorothiazide 1 tab PO DAILY 03/2501/08/25 12.5 mg tablet amlodipine 10 mg tablet 10 mg PO DAILY 01/08/2512/26 cranberry-vit 1 cap PO DAILY 01/08/2512/26 C-B.coag-FOS-L.acid-L.rham 250 mg-30 mg-39.5 mg capsule Allergies Allergy/AdvReac Type Severity Reaction Status Date / Time No Known Allergies Allergy Verified 12/30/24 10:35 Review of Systems 2 Const: Denies: fever(s) or chills Card: Denies: chest pain Resp: Denies: dyspnea GI: Denies: abdominal pain : Denies: dysuria, urinary frequency or urinary urgency Musc: Denies: neck pain or back pain Skin/Breast: Denies: rash PFSH ED 2 PFSH: Medical History Aortic stenosis Surgical History H/O: hysterectomy Previous back surgery S/P total knee arthroplasty Physical Exam 2 Const: GENERAL APPEARANCE: cooperative ORIENTATION/CONSCIOUSNESS: Yes awake, Yes oriented to person, Yes oriented to place and Yes oriented to time HENMT: COMMON NORMALS: normocephalic, atraumatic and hearing grossly normal bilaterally HEAD & SCALP: normocephalic and atraumatic Resp: COMMON NORMALS: normal respiratory effort, No retractions, No use of accessory muscles and clear to auscultation bilaterally AUSCULTATION: clear to auscultation bilaterally Cardio: COMMON NORMALS: regular rate, regular rhythm and No murmurs present (Cardio) RATE: regular rate RHYTHM: regular rhythm GI: COMMON NORMALS: Soft to palpation and No hepatosplenomegaly present A USCULTATION: Yes normoactive bowel sounds PALPATION: Yes Soft to palpation, No Tenderness to palpation present (GI), No Guarding due to palpation present (GI) and Yes No hepatosplenomegaly present Extremity: COMMON NORMALS: normal to inspection, capillary refill normal, no clubbing, cyanosis or edema, no calf tenderness and no pedal edema Neuro: SENSORIUM/ORIENTATION: Yes oriented to person, Yes oriented to place and Yes oriented to time Skin: COMMON NORMALS: no rashes or lesions noted GENERAL SKIN EXAM: no rashes or lesions noted Course 2 Vital Signs: Vital signs: Vital Signs Temperature 97.6 F 01/08/25 08:56 Pulse Rate 88 01/08/25 13:59 Respiratory Rate 17 01/08/25 08:56 Blood Pressure 144/83 01/08/25 13:59 Pulse Oximetry 97 01/08/25 13:59 Oxygen Delivery Me thod Room Air 01/08/25 08:56 MDM - Fall Medical Decision Making Patient has right shoulder pain the remainder of the evaluation is negative. Nothing on the CT no sign of cystitis. No focal neurologic deficits. Discharge patient home anti-inflammatories as needed and follow-up with primary care Medical Records I reviewed the patient's medical records. Lab Data I reviewed the patient's lab results. 01/08/25 11:04 01/08/25 11:04 Radiology Impressions Shoulder X-Ray 01/08/25 08:56 IMPRESSION: Severe osteoarthritis of the right shoulder as above. Potential nondisplaced incomplete surgical neck fracture, equivocal. Chest X-Ray 01/08/25 09:47 IMPRESSION: Stable chest without acute abnormality. Head CT 01/08/25 09:47 IMPRESSION: 1. No evidence of intracranial hemorrhage or mass effect. 2. No acute intracranial findings. Humerus CT 01/08/25 11:02 IMPRESSION: No acute fractures Laboratory Results WBC 11.35 10^3/uL (3.29-11.43) 01/08/25 11:04 RBC 4.25 10^6/uL (3.85-5.65) 01/08/25 11:04 Hgb 12.80 g/dL (11.27-16.99) 01/08/25 11:04 Hct 38.4 % (36-47) 01/08/25 11:04 MCV 90.4 fl (85-98) 01/08/25 11:04 MCH 30.1 pg (27-33) 01/08/25 11:04 MCHC 33.3 g/dL (30-55) 01/08/25 11:04 RDW 15.3 % (12.1-15.1) H 01/08/25 11:04 Plt Count 255 10^3/cmm (157-399) 01/08/25 11:04 MPV 10.7 fL (7.4-10.4) H 01/08/25 11:04 Neut % (Auto) 87.0 % 01/08/25 11:04 Lymph % (Auto) 4.0 % 01/08/25 11:04 [place] % (Auto) 8.0 % 01/08/25 11:04 Eos % (Auto) 0.2 % 01/08/25 11:04 Baso % (Auto) 0.4 % 01/08/25 11:04 Neut # (Auto) 9.88 10^3/uL (1.8-7.7) H 01/08/25 11:04 Lymph # (Auto) 0.5 10^3/uL (0.8-4.8) L 01/08/25 11:04 [place] # (Auto) 0.9 10^3/uL (0.2-0.9) 01/08/25 11:04 Eos # (Auto) 0.0 10^3/uL (0.0-0.8) 01/08/25 11:04 Baso # (Auto) 0.0 10^3/uL (0.0-0.1) 01/08/25 11:04 Nucleated RBC % (auto) 0 % 01/08/25 11:04 Nucleated RBCs # 0.0 /100WBC 01/08/25 11:04 Sodium 137 mmol/L (136-145) 01/08/25 11:04 Potassium 3.6 mmol/L (3.5-5.1) 01/08/25 11:04 Chloride 101 mmol/L (98-107) 01/08/25 11:04 Carbon Dioxide 22 mmol/L (22-29) 01/08/25 11:04 Anion Gap 17.6 (5-19) 01/08/25 11:04 BUN 27 mg/dL (8-23) H 01/08/25 11:04 Creatinine 1.1 mg/dL (0.5-0.9) H 01/08/25 11:04 GFR Calculation Not Reportable 01/08/25 11:04 Glucose 108 mg/dL (65-115) 01/08/25 11:04 Calculated Osmolality 290 mOsm/kg (285-295) 01/08/25 11:04 Calcium 9.4 mg/dL (8.5-10.5) 01/08/25 11:04 Total Bilirubin 0.5 mg/dL (0.15-1.2) 01/08/25 11:04 AST 18 U/L (0-32) 01/08/25 11:04 ALT 9 U/L (0-33) 01/08/25 11:04 Alkaline Phosphatase 61 U/L (35-105) 01/08/25 11:04 Total Protein 7.4 g/dL (6.6-8.7) 01/08/25 11:04 Albumin 4.2 g/dL (3.5-5.2) 01/08/25 11:04 Globulin 3.2 g/dL (1.3-4.6) 01/08/25 11:04 Urine Color Yellow (Yellow) 01/08/25 11:48 Urine Appearance Clear (CLEAR) 01/08/25 11:48 Urine pH 8.0 (5-7) A 01/08/25 11:48 Ur Specific [place] 1.014 (1.005-1.030) 01/08/25 11:48 Urine Protein Negative (Negative) 01/08/25 11:48 Urine Glucose (UA) Negative (Normal) 01/08/25 11:48 Urine Ketones 1+ (Negative) H 01/08/25 11:48 Urine Blood Negative (Negative) 01/08/25 11:48 Urine Nitrate Negative (Negative) 01/08/25 11:48 Urine Bilirubin Negative (Negative) 01/08/25 11:48 Urine Urobilinogen 0.2 mg/dL (Negative) 01/08/25 11:48 Ur Leukocyte Esterase Negative (Negative) 01/08/25 11:48 Urine RBC 0-2 /hpf (0-2) 01/08/25 11:48 Urine WBC 0-5 /hpf (0-5) 01/08/25 11:48 Ur Squamous Epith Cells 0-5 /hpf (0-5) 01/08/25 11:48 Amorphous Sediment Not Reportable 01/08/25 11:48 Urine Bacteria None seen /hpf (NONE) 01/08/25 11:48 Hyaline Casts 0-4 /lpf H 01/08/25 11:48 All radiology interpretation(s) finalized by discharge Discharge Plan Discharge Patient Disposition: Home Clinical Impression: Weakness, Frequent falls, Pain in right shoulder, Hypertension Condition: Stable Prescriptions: No Action losartan-hydrochlorothiazide 50-12.5 mg tablet 1 tab PO DAILY amlodipine 10 mg tablet 10 mg PO DAILY Probiotic Plus and Cranberry 250-30-39.5 mg Capsule 1 cap PO DAILY Discharge Orders: Discharge ED (Routine); Ordered 01/08/25 Ordered By: Erik Hawkins Referrals: Moose Colon MD [Primary Care Provider] - Discharge Diet: Usual diet Discharge Activity: Increase activity as tolerated Patient Instructions: Opioid Safety, Pain Management Activity Restrictions/Additional Instructions: Thank you for choosing [facility] for your healthcare needs today. It is very important that you follow up as instructed or that you return to the Emergency Department should you have concerns or if your condition changes or worsens in any way. You are seen in the emergency room today for falls and right shoulder pain. Imaging done in the emergency room did not show any acute abnormalities. There is no sign of a fracture on the CT that was done. Head CT and chest x-ray were normal. Other laboratory test done today were also normal there is no sign of bladder infection. Would recommend you follow-up with your primary care doctor as scheduled. Continue to monitor your blood pressure closely. Print Language: Amharic Coding Level of Care Code ED Clinical Rn Liaison for Liban Arango
--- NOTE | 2025-01-08 09:47 | CT_ITS ---
WS: [id number] CT HEAD TECHNIQUE: Noncontrast CT of the head obtained from the skullbase to the vertex. CLINICAL INFORMATION: frequent falls COMPARISON: 12/30/2024 DLP: 905.[address] scans at [facility] use at least one of these dose optimization techniques: automated exposure control; mA and/or kV adjustment per patient size (includes targeted exams where dose is matched to clinical indication); or iterative reconstruction. FINDINGS: No evidence of intracranial hemorrhage or mass effect. Ventricular system and basal cisterns are patent. Mild small vessel changes with moderate parenchymal volume loss. No extra-axial fluid collections. No evidence of mass or mass effect. Vascular calcification. Paranasal sinuses and mastoid air cells are well aerated. .Normal visualized soft tissues. CT/CT head wo con* [id number] IMPRESSION: 1. No evidence of intracranial hemorrhage or mass effect. 2. No acute intracranial findings.
--- NOTE | 2025-01-08 09:47 | XR_ITS ---
WS: [id number] XR chest 1V portable [id number] REASON FOR EXAM: dyspnea/cough FINDINGS: Examination is unchanged compared to 04/13/2025. Severe tortuosity and ectasia of the thoracic aorta. Normal heart size. Calcified granulomatous disease bilaterally. No acute pulmonary parenchymal or pleural abnormality. Bilateral severe osteoarthropathy of the shoulder joints. Moderate degenerative spondylosis of the lumbar spine. XR/XR chest 1V portable [id number] IMPRESSION: Stable chest without acute abnormality.
--- NOTE | 2025-01-08 11:02 | CT_ITS ---
WS: [id number] CT RIGHT humerus TECHNIQUE: CT RIGHT humerus with coronal and sagittal reformatted images. CLINICAL INFORMATION: Pain possible fracture DLP: 1136.[address] scans at [facility] use at least one of these dose optimization techniques: automated exposure control; mA and/or kV adjustment per patient size (includes targeted exams where dose is matched to clinical indication); or iterative reconstruction. FINDINGS: Advanced degenerative arthritis glenohumeral articulation. Osteopenia. Subchondral cystic change involving the humeral head and glenoid with sclerosis. Humeral shaft is normal. No acute humeral head fractures. Calcific tendinitis involving the rotator cuff. Calcified loose bodies in the subcoracoid bursa. CT/CT humerus RT wo con* [id number] IMPRESSION: No acute fractures
[2025-01-08 11:15] LABS: Basophils % 0.4 %; Eosinophils % 0.2 %; Hematocrit 38.4 % (36-47); Lymphocytes # 0.5 10^3/uL (0.8-4.8); Mean Corpuscular HGB Conc 33.3 g/dL (30-55); Mean Corpuscular Hemoglobin 30.1 pg (27-33); Mean Corpuscular Volume 90.4 fl (85-98); Mean Platelet Volume 10.7 fL (7.4-10.4); Monocytes # 0.9 10^3/uL (0.2-0.9); Neutrophils # 9.88 10^3/uL (1.8-7.7); Nucleated Red Blood Cells % 0 %; Platelet Count 255 10^3/cmm (157-399); Red Blood Count 4.25 10^6/uL (3.85-5.65); Red Cell Distribution Width 15.3 % (12.1-15.1); White Blood Count 11.35 10^3/uL (3.29-11.43)
[2025-01-08 11:36] LABS: Alanine Aminotransferase 9 U/L (0-33); Albumin Level 4.2 g/dL (3.5-5.2); Alkaline Phosphatase 61 U/L (35-105); Anion Gap 17.6 (5-19); Aspartate Amino Transferase 18 U/L (0-32); Blood Urea Nitrogen 27 mg/dL (8-23); Calcium 9.4 mg/dL (8.5-10.5); Carbon Dioxide 22 mmol/L (22-29); Chloride 101 mmol/L (98-107); Creatinine Clr Calc Pharmacy 38.6733; Globulin 3.2 g/dL (1.3-4.6); Glucose 108 mg/dL (65-115); Osmolality Calculated 290 mOsm/kg (285-295); Potassium 3.6 mmol/L (3.5-5.1); Sodium 137 mmol/L (136-145); Total Bilirubin 0.5 mg/dL (0.15-1.2); Total Protein 7.4 g/dL (6.6-8.7)
[2025-01-08 12:18] LABS: Bilirubin Urine Negative (Negative); Blood Urine Negative (Negative); Glucose Urine UA Negative (Normal); Ketones Urine 1+ (Negative); Leukocyte Esterase Urine Negative (Negative); Nitrate Urine Negative (Negative); Protein Urine Negative (Negative); Specific Gravity, Urine 1.014 (1.005-1.030); Urine Appearance Clear (CLEAR); Urine Color Yellow (Yellow); Urobilinogen Urine 0.2 mg/dL (Negative)
[2025-01-08 12:23] LABS: Add Urine Microscopic? YES; Bacteria Urine None Seen /hpf; Hyaline Casts Urine 0-4 /lpf; RBC Urine 0-2 /hpf (0-2); Squamous Epithelial Cell Urine 0-5 /hpf (0-5); WBC Urine 0-5 /hpf (0-5)
[2025-01-08] MEDS: HYDROcodone-acetaminophen 5-325 mg Tablet 1 TAB PO (13:58)
== END 2025-01-08 14:00 | disposition home or self-care (01) ==
PROVIDERS: Emergency Provider Family Medicine; PCP Family Medicine
DX: R53.1 Weakness (principal); R29.6 Repeated falls; M25.511 Pain in right shoulder; I10 Essential (primary) hypertension
CPT/HCPCS: 36415; 70450; 71045; 73030; 73200; 80053; 81001; 85025; 93005; 99285